=== PATIENT | male | born 1955 | race Caucasian/White ===

== ENCOUNTER 2018-06-14 06:54 | Observation (INO) | payer BC ==
[2018-06-14] VITALS (260 sets, daily range): BP systolic 93–143; BP diastolic 57–87; PULSE 45–97; TEMP 97.2–98.6; O2SAT 84–100
[~2018-06-14] VITALS: Ht 177.8 cm; Wt 114.3 kg
[2018-06-14] MEDS ORDERED: COREG 6.256.25 MG/TA PO (07:16)
[2018-06-14] MEDS ORDERED: LIPITOR20 MG PO (07:16)
[2018-06-14] MEDS ORDERED: ASPIRIN E.C. 8181 MG PO (07:17)
[2018-06-14] MEDS ORDERED: VENTOLIN0.09 MG IH (07:17)
[2018-06-14] MEDS ORDERED: PRILOSEC 20MG20 MG PO (07:18)
[2018-06-14] MEDS ORDERED: ZESTRIL 10MG10 MG PO (07:18)
[2018-06-14] MEDS ORDERED: MULTIVITAMIN SEN PO (07:19)
[2018-06-14 07:42] LABS: HEMOGLOBIN 15.2 g/dl (13.5-18.0); MEAN CELL VOLUME 91 fl (80.0-100.0); MEAN CORPUSCULAR HEMOGLOBIN 30 pg (27.0-31.0); MEAN CORPUSCULAR HGB CONC 33 g/dl (33.0-37.0); MEAN PLATELET VOLUME 11.2 fl (7.4-10.4); PLATELET COUNT 204 K/mm3 (130-400); RED BLOOD COUNT 5.05 M/mm3 (4.20-5.60); REDCELL DISTRIBUTION WIDTH-CV 12.8 % (11.5-14.5)
[2018-06-14 07:44] LABS: CALCIUM 9.7 mg/dL (8.4-10.2); CREATININE, serum 1.1 mg/dL (0.66-1.25); POTASSIUM 4.6 mmol/L (3.4-5.0)
[2018-06-14 07:53] LABS: PROTHROMBIN TIME 11.8 SECONDS (9.7-12.8)
[2018-06-15 03:26] VITALS: BP 118/61; PULSE 76; TEMP 97.7
[2018-06-15 06:44] LABS: BASO # 0.1 (0.0-0.2); BASO % 0.8 % (0.0-2.0); EOS # 0.4 (0.0-0.7); GRAN # 5.2 (1.4-6.5); GRAN % 60.2 % (42.2-75.2); HEMATOCRIT 44.4 % (42.0-52.0); HEMOGLOBIN 14.2 g/dl (13.5-18.0); LYMPH # 2.3 (1.2-3.4); LYMPH % 26.9 % (20.0-51.0); MEAN CELL VOLUME 93 fl (80.0-100.0); MEAN CORPUSCULAR HEMOGLOBIN 30 pg (27.0-31.0); MEAN CORPUSCULAR HGB CONC 32 g/dl (33.0-37.0); MEAN PLATELET VOLUME 10.3 fl (7.4-10.4); MONO # 0.7 (0.1-0.6); MONO % 7.9 % (1.7-9.3); PLATELET COUNT 229 K/mm3 (130-400); REDCELL DISTRIBUTION WIDTH-CV 12.9 % (11.5-14.5)
[2018-06-15 07:01] LABS: CREATININE, serum 1.16 mg/dL (0.66-1.25); POTASSIUM 4.3 mmol/L (3.4-5.0)
[2018-06-15 07:34] VITALS: BP 128/62; PULSE 57; TEMP 98
[2018-06-15] MEDS ORDERED: BRILINTA90 MG PO (08:27)
[2018-06-15] MEDS ORDERED: IMDUR 30MG30 MG/TAB PO (08:28)
== END 2018-06-15 09:50 | disposition home or self-care (01) ==
LOC: COL.CAR 06:54 → ICU 10:00 → COL.CAR 10:01 → ICU 10:02 → MEDICAL 18:01
PROVIDERS: Internal Medicine Cardiovascular Disease
DX: I25.118 Atherosclerotic heart disease of native coronary artery with other forms of angina pectoris (principal); I10 Essential (primary) hypertension; E78.5 Hyperlipidemia, unspecified; J44.9 Chronic obstructive pulmonary disease, unspecified; I73.9 Peripheral vascular disease, unspecified; Z87.891 Personal history of nicotine dependence
CPT/HCPCS: C1725; C1769; C1874; C1887; C9600; G0378; G0379; J1644; J2250; J3010; J7030; Q9967

== ENCOUNTER 2020-04-02 08:57 | Day surgery (SDC) | payer BC ==
[~2020-04-02] VITALS: Ht 177.8 cm; Wt 113.9 kg
[2020-04-02] VITALS (221 sets, daily range): BP systolic 125–163; BP diastolic 64–90; PULSE 49–62; TEMP 97.8–98.2; O2SAT 89–99
[~2020-04-02 08:57] MED LIST: ASPIRIN E.C. 8181 MG PO; BRILINTA90 MG PO; COREG 6.256.25 MG/TA PO; IMDUR 30MG30 MG/TAB PO; LIPITOR20 MG PO; MULTIVITAMIN SEN PO; PRILOSEC 20MG20 MG PO; VENTOLIN0.09 MG IH; ZESTRIL 10MG10 MG PO
[2020-04-02] MEDS ORDERED: TRELEGY ELLIPT1 EACH IH (09:24)
[2020-04-02] MEDS ORDERED: IMDUR 60MG60 MG/TAB PO (09:26)
[2020-04-02] MEDS ORDERED: MAGNESIUM250 M1 PO (09:29)
[2020-04-02] MEDS ORDERED: POTASSIUM GLUC595 M1 PO (09:30)
[2020-04-02 10:19] LABS: HEMOGLOBIN 15.7 g/dl (13.5-18.0); MEAN CELL VOLUME 92 fl (80.0-100.0); MEAN CORPUSCULAR HEMOGLOBIN 30 pg (27.0-31.0); MEAN CORPUSCULAR HGB CONC 33 g/dl (33.0-37.0); MEAN PLATELET VOLUME 9.7 fl (7.4-10.4); PLATELET COUNT 214 K/mm3 (130-400); REDCELL DISTRIBUTION WIDTH-CV 13.2 % (11.5-14.5)
[2020-04-02 10:27] LABS: CALCIUM 9.4 mg/dL (8.4-10.2); CREATININE, serum 1.39 (0.66-1.25); POTASSIUM 4.9 mmol/L (3.4-5.0)
[2020-04-02 10:28] LABS: PROTHROMBIN TIME 11.4 SECONDS (9.7-12.8)
[2020-04-02 10:31] LABS: PARTIAL THROMBOPLASTIN TIME 30.1 SECONDS (26.0-37.0)
--- NOTE | 2020-04-02 11:00 | NUR ---
SEE MERGE FOR MEDICATION ADMINISTRATION TIMES AND INTRA AND POST SEDATION ASSESSMETNS.
--- NOTE | 2020-04-02 19:30 | NUR ---
Arrived to medical floor at this time.
--- NOTE | 2020-04-02 19:50 | NUR ---
Report given to MAIKOL Moya. Patient doing well. TR band is off and bandaid is in place. right radial site looks clean and dry with no evidence of bruising.
--- NOTE | 2020-04-02 20:10 | NUR ---
Arrived to medical floor at this time. Giving call light. Right radial site CDI.
--- NOTE | 2020-04-02 20:35 | NUR ---
Resting in bed. Assessment complete. Lungs clear. Heart sounds normal. Bowels active x4. Pulses present throughout. No edema noted. INT left wrist flushed without complications. Right radial site covered with bandaide-CDI. Denies pain. Orientated to medical floor. Denies needs. Call light in reach.
--- NOTE | 2020-04-03 00:50 | NUR ---
Resting in bed. Right radial site CDI. Denies pain. Call light in reach.
[2020-04-03 01:05] VITALS: BP 142/71; PULSE 51; TEMP 97.7
--- NOTE | 2020-04-03 04:45 | NUR ---
Resting in bed. Denies needs. Denies pain. Call light in reach.
[2020-04-03 05:19] VITALS: BP 126/75; PULSE 52; TEMP 97.8
--- NOTE | 2020-04-03 06:28 | NUR ---
Patient had uneventful night. Right radial site CDI. Denies needs this AM. Call light in reach.
[2020-04-03] MEDS ORDERED: PLAVIX 75MG TAB75 MG PO (07:08)
--- NOTE | 2020-04-03 07:17 | NUR ---
Report given to MAIKOL Sanchez
[2020-04-03 08:04] VITALS: BP 137/72; PULSE 58; TEMP 98.4
--- NOTE | 2020-04-03 13:10 | NUR ---
patient is alert and oriented . no edema noted. patient denied any pain at this time. INT discontinued. pt was started on Plavix 75mg. Right radial incision for Heart cath is intact and dry. Patient disharged.
== END 2020-04-03 10:00 | disposition home or self-care (01) ==
LOC: COL.CAR 08:57 → ICU 12:55 → MEDICAL 19:27 → COL.CAR 04-03 10:00
PROVIDERS: Internal Medicine Cardiovascular Disease
DX: I25.10 Atherosclerotic heart disease of native coronary artery without angina pectoris (principal); I25.9 Chronic ischemic heart disease, unspecified; I10 Essential (primary) hypertension; I25.110 Atherosclerotic heart disease of native coronary artery with unstable angina pectoris; E78.5 Hyperlipidemia, unspecified
CPT/HCPCS: OP; C1725; C1769; C1874; C1887; C9600; J1644; J2250; J3010